=== PATIENT | male | born 1965 | race Two or more races ===

== ENCOUNTER 2020-11-23 11:13 | Inpatient (IN) | payer SELFPAY ==
[~2020-11-23] VITALS: Ht 167.6 cm; Wt 97.5 kg
[2020-11-23 12:07] LABS: HEMOGLOBIN 17.7 gm/dl (14.0-17.5); RED BLOOD COUNT 5.99 M/UL (4.20-5.50); WHITE BLOOD COUNT 10.3 K/UL (4.5-11.0)
[2020-11-23 12:33] LABS: BUN/CREATININE RATIO 13 (0-10)
[2020-11-23] MEDS ORDERED: IBUPROFEN200 MG PO (19:57)
[2020-11-24 02:07] LABS: HEMOGLOBIN 17.5 gm/dl (14.0-17.5); RED BLOOD COUNT 5.96 M/UL (4.20-5.50); WHITE BLOOD COUNT 9.8 K/UL (4.5-11.0)
[2020-11-24 03:06] LABS: BUN/CREATININE RATIO 15 (0-10)
[2020-11-24] MEDS ORDERED: ASPIRIN81 MG PO (16:54)
[2020-11-24] MEDS ORDERED: LISINOPRIL5 MG PO (16:54)
[2020-11-24] MEDS ORDERED: ATORVASTATIN CA20 MG PO (16:54)
[2020-11-24] MEDS ORDERED: LOPRESSOR 25 MG25 MG PO (16:54)
== END 2020-11-24 19:00 | disposition home or self-care (01) | DRG 282 ==
LOC: ER1 11:13 → CDU 12:58 → PROG CARE 12:58
PROVIDERS: Nurse Practitioner; Physician Assistant; ADMIT Internal Medicine
PROC: B24BZZZ Ultrasonography of Heart with Aorta (ICD-10-PCS; principal; 2020-11-23)
PROC: 4A023N7 Measurement of Cardiac Sampling and Pressure, Left Heart, Percutaneous Approach (ICD-10-PCS; 2020-11-24)
PROC: B2111ZZ Fluoroscopy of Multiple Coronary Arteries using Low Osmolar Contrast (ICD-10-PCS; 2020-11-24)
PROC: B2151ZZ Fluoroscopy of Left Heart using Low Osmolar Contrast (ICD-10-PCS; 2020-11-24)
DX: I16.0 Hypertensive urgency (principal); I21.4 Non-ST elevation (NSTEMI) myocardial infarction; E78.5 Hyperlipidemia, unspecified; Z20.822 Contact with and (suspected) exposure to COVID-19; I27.20 Pulmonary hypertension, unspecified; I07.1 Rheumatic tricuspid insufficiency; Z96.653 Presence of artificial knee joint, bilateral; Z96.612 Presence of left artificial shoulder joint; Z96.611 Presence of right artificial shoulder joint; Z90.89 Acquired absence of other organs; Z79.82 Long term (current) use of aspirin; Z98.890 Other specified postprocedural states
CPT/HCPCS: ECHO; 36415; 71045; 80048; 80053; 80061; 82550; 82553; 83735; 83874; 83880; 84484; 85025; 85610; 85730; 93005; 93306; 99152; 99153; 99285; C1769; C1894; J0360; J1644; J2060; J2250; J2405; J3010; J7030; J7040; Q9967; U0002

== ENCOUNTER 2020-11-26 18:26 | Emergency (ER) | payer SELFPAY ==
[~2020-11-26 18:26] MED LIST: ASPIRIN81 MG PO; ATORVASTATIN CA20 MG PO; IBUPROFEN200 MG PO; LISINOPRIL5 MG PO; LOPRESSOR 25 MG25 MG PO
== END 2020-11-27 00:15 | disposition home or self-care (01) ==
LOC: ER1 18:26
DX: S30.1XXA Contusion of abdominal wall, initial encounter (principal); F17.200 Nicotine dependence, unspecified, uncomplicated; W22.8XXA Striking against or struck by other objects, initial encounter
CPT/HCPCS: 93926; 99284